=== PATIENT | male | born 2000 | race African-American/Black ===

== ENCOUNTER 2021-12-25 12:15 | Emergency (ER) | payer MEDICAID ==
[~2021-12-25] VITALS: Ht 175.3 cm; Wt 75.0 kg
[2021-12-25 12:20] VITALS: BP 148/79
[2021-12-25] MEDS ORDERED: CEPH500C2 MT (12:54)
== END 2021-12-25 13:02 | disposition home or self-care (01) ==
LOC: ER 12:15
DX: R51.9 Headache, unspecified (principal)
CPT/HCPCS: 99283